=== PATIENT | male | born 1975 | race Caucasian/White ===

== ENCOUNTER 2021-05-16 11:33 | Outpatient (CLI) | payer BC, SELFPAY ==
[2021-05-16 13:04] LABS: Hemoglobin A1C 5.4 % (<5.7)
[2021-05-16 13:06] LABS: ALT 43 U/L (16-63); AST 22 U/L (15-37); Albumin 4.3 g/dL (3.4-5.0); Alkaline Phosphatase 65 U/L (46-116); Anion Gap 6.9 mmol/L (3-11); BUN 13 mg/dL (7-18); Bilirubin, Total 0.5 mg/dL (0.2-1.0); CO2 29.1 mmol/L (21.0-32.0); CREATININE 1.1 mg/dL (0.70-1.30); Calculated LDL 175 mg/dL (<100); Chloride 105 mmol/L (98-107); Cholesterol 252 mg/dL (<200); Glucose 87 mg/dL (74-106); HDL Cholesterol 35 mg/dL (40-60); Potassium 4.6 mmol/L (3.5-5.1); Sodium 141 mmol/L (136-145); Total Protein 7.3 g/dL (6.4-8.2); Triglyceride 213 mg/dL (<150)
== END 2021-05-16 11:34 | disposition home or self-care (01) ==
LOC: LOS 11:33
PROVIDERS: PCP Nurse Practitioner Family; Visit Provider Nurse Practitioner Family
DX: Z00.00 Encounter for general adult medical examination without abnormal findings (principal); Z13.1 Encounter for screening for diabetes mellitus; Z13.220 Encounter for screening for lipoid disorders
CPT/HCPCS: 36415; 80053; 80061; 83036

== ENCOUNTER 2021-10-22 04:25 | Outpatient (CLI) | payer BC, SELFPAY ==
[2021-10-22 12:48] LABS: Abs Immature Grans 0.02 10^3/uL (0.0-0.06); Absolute Basophil Count 0.03 10^3/uL (0.0-0.2); Absolute Lymphocyte Count 2.23 10^3/uL (1.2-3.4); Absolute Monocyte Count 0.77 10^3/uL (0.1-0.8); Absolute Neutrophil Count 5.02 10^3/uL (1.2-6.7); Basophils % 0.4; Eosinophils % 2.4; HCT 43.9 % (40.0-50.0); HGB 14.8 g/dL (13.5-17.5); Immature Grans % 0.2; MCH 30.1 pg (27.0-33.0); MCHC 33.7 % (32.0-36.0); MCV 89.4 fL (80-95); MPV 9.8 fL (8.0-11.0); Monocytes % 9.3; Neutrophils % 60.7; Nucleated RBC 0 %; Platelet Count 355 10^3/uL (130-400); RBC 4.91 10^6/uL (4.36-5.78); RDW 12.3 % (11.8-14.1); RDW-SD 40.4 fL; WBC 8.27 10^3/uL (4.4-10.8)
[2021-10-22 13:43] LABS: ALT 32 U/L (16-63); AST 14 U/L (15-37); Albumin 4.3 g/dL (3.4-5.0); Alkaline Phosphatase 100 U/L (46-116); Anion Gap 11.4 mmol/L (3-11); BUN 20 mg/dL (7-18); Bilirubin, Total 0.4 mg/dL (0.2-1.0); CO2 25.6 mmol/L (21.0-32.0); CREATININE 0.9 mg/dL (0.70-1.30); Calcium 9.2 mg/dL (8.5-10.1); Chloride 100 mmol/L (98-107); Glucose 109 mg/dL (74-106); Potassium 4.5 mmol/L (3.5-5.1); Sodium 137 mmol/L (136-145); Total Protein 7.9 g/dL (6.4-8.2)
== END 2021-10-22 04:26 | disposition home or self-care (01) ==
LOC: LBO 04:25
PROVIDERS: PCP Nurse Practitioner Family; Visit Provider Internal Medicine Hematology & Oncology
DX: C20 Malignant neoplasm of rectum (principal)
CPT/HCPCS: 36415; 80053; 85025

== ENCOUNTER 2021-11-08 15:08 | Outpatient (CLI) | payer BC, SELFPAY ==
[2021-11-08 12:51] LABS: Abs Immature Grans 0.02 10^3/uL (0.0-0.06); Absolute Basophil Count 0.02 10^3/uL (0.0-0.2); Absolute Eosinophil Count 0.15 10^3/uL (0.0-0.7); Absolute Lymphocyte Count 1.69 10^3/uL (1.2-3.4); Absolute Monocyte Count 0.73 10^3/uL (0.1-0.8); Absolute Neutrophil Count 4.15 10^3/uL (1.2-6.7); Basophils % 0.3; Eosinophils % 2.2; HCT 44.6 % (40.0-50.0); Immature Grans % 0.3; MCH 29.8 pg (27.0-33.0); MCHC 33.6 % (32.0-36.0); MCV 88.7 fL (80-95); MPV 9.5 fL (8.0-11.0); Monocytes % 10.8; Neutrophils % 61.4; Nucleated RBC 0 %; Platelet Count 358 10^3/uL (130-400); RBC 5.03 10^6/uL (4.36-5.78); RDW 12.2 % (11.8-14.1); RDW-SD 39.3 fL; WBC 6.76 10^3/uL (4.4-10.8)
[2021-11-08 13:07] LABS: ALT 33 U/L (16-63); AST 13 U/L (15-37); Albumin 4.1 g/dL (3.4-5.0); Alkaline Phosphatase 98 U/L (46-116); Anion Gap 11.1 mmol/L (3-11); BUN 17 mg/dL (7-18); Bilirubin, Total 0.4 mg/dL (0.2-1.0); CO2 24.9 mmol/L (21.0-32.0); CREATININE 0.9 mg/dL (0.70-1.30); Chloride 100 mmol/L (98-107); Glucose 105 mg/dL (74-106); Potassium 4.2 mmol/L (3.5-5.1); Sodium 136 mmol/L (136-145); Total Protein 8.4 g/dL (6.4-8.2)
== END 2021-11-08 15:09 | disposition home or self-care (01) ==
LOC: LBO 15:12
PROVIDERS: PCP Nurse Practitioner Family; Visit Provider Internal Medicine Hematology & Oncology
DX: C20 Malignant neoplasm of rectum (principal)
CPT/HCPCS: 36415; 80053; 85025

== ENCOUNTER 2021-11-15 01:55 | Outpatient (CLI) | payer BC, SELFPAY ==
[2021-11-15 14:49] LABS: Abs Immature Grans 0.02 10^3/uL (0.0-0.06); Absolute Basophil Count 0.01 10^3/uL (0.0-0.2); Absolute Lymphocyte Count 0.97 10^3/uL (1.2-3.4); Absolute Monocyte Count 0.49 10^3/uL (0.1-0.8); Absolute Neutrophil Count 3.03 10^3/uL (1.2-6.7); Basophils % 0.2; Eosinophils % 2.2; HCT 42.7 % (40.0-50.0); HGB 14.4 g/dL (13.5-17.5); Immature Grans % 0.4; MCH 29.8 pg (27.0-33.0); MCHC 33.7 % (32.0-36.0); MCV 88.2 fL (80-95); MPV 9.4 fL (8.0-11.0); Monocytes % 10.6; Neutrophils % 65.6; Nucleated RBC 0 %; Platelet Count 290 10^3/uL (130-400); RBC 4.84 10^6/uL (4.36-5.78); RDW 12.3 % (11.8-14.1); RDW-SD 38.6 fL; WBC 4.62 10^3/uL (4.4-10.8)
[2021-11-15 15:05] LABS: ALT 30 U/L (16-63); AST 15 U/L (15-37); Albumin 4.1 g/dL (3.4-5.0); Alkaline Phosphatase 85 U/L (46-116); Anion Gap 9.8 mmol/L (3-11); BUN 21 mg/dL (7-18); Bilirubin, Total 0.4 mg/dL (0.2-1.0); CO2 24.2 mmol/L (21.0-32.0); CREATININE 0.8 mg/dL (0.70-1.30); Calcium 9.1 mg/dL (8.5-10.1); Chloride 103 mmol/L (98-107); Glucose 98 mg/dL (74-106); Potassium 4.3 mmol/L (3.5-5.1); Sodium 137 mmol/L (136-145); Total Protein 8.1 g/dL (6.4-8.2)
== END 2021-11-15 01:56 | disposition home or self-care (01) ==
LOC: LBO 01:55
PROVIDERS: PCP Nurse Practitioner Family; Visit Provider Internal Medicine Hematology & Oncology
DX: C20 Malignant neoplasm of rectum (principal)
CPT/HCPCS: 36415; 80053; 85025

== ENCOUNTER 2021-11-22 03:35 | Outpatient (CLI) | payer BC, SELFPAY ==
[2021-11-22 13:13] LABS: Abs Immature Grans 0.01 10^3/uL (0.0-0.06); Absolute Basophil Count 0.01 10^3/uL (0.0-0.2); Absolute Eosinophil Count 0.05 10^3/uL (0.0-0.7); Absolute Lymphocyte Count 0.66 10^3/uL (1.2-3.4); Absolute Monocyte Count 0.41 10^3/uL (0.1-0.8); Basophils % 0.3; Eosinophils % 1.3; HCT 41.1 % (40.0-50.0); HGB 13.6 g/dL (13.5-17.5); Immature Grans % 0.3; Lymphocytes % 17.1; MCHC 33.1 % (32.0-36.0); MCV 90.5 fL (80-95); MPV 9.1 fL (8.0-11.0); Monocytes % 10.6; Neutrophils % 70.4; Nucleated RBC 0 %; Platelet Count 244 10^3/uL (130-400); RBC 4.54 10^6/uL (4.36-5.78); RDW 13.2 % (11.8-14.1); WBC 3.87 10^3/uL (4.4-10.8)
[2021-11-22 13:15] LABS: Absolute Neutrophil Count 2.72 10^3/uL (1.2-6.7)
[2021-11-22 13:29] LABS: ALT 32 U/L (16-63); AST 15 U/L (15-37); Albumin 4.2 g/dL (3.4-5.0); Alkaline Phosphatase 79 U/L (46-116); Anion Gap 9.1 mmol/L (3-11); BUN 23 mg/dL (7-18); Bilirubin, Total 0.5 mg/dL (0.2-1.0); CO2 27.9 mmol/L (21.0-32.0); Chloride 102 mmol/L (98-107); Glucose 90 mg/dL (74-106); Potassium 4.1 mmol/L (3.5-5.1); Sodium 139 mmol/L (136-145)
== END 2021-11-22 03:36 | disposition home or self-care (01) ==
LOC: LBO 03:35
PROVIDERS: PCP Nurse Practitioner Family; Visit Provider Internal Medicine Hematology & Oncology
DX: C20 Malignant neoplasm of rectum (principal)
CPT/HCPCS: 36415; 80053; 85025

== ENCOUNTER 2021-11-29 02:54 | Outpatient (CLI) | payer BC, SELFPAY ==
[2021-11-29 13:29] LABS: Abs Immature Grans 0.01 10^3/uL (0.0-0.06); Absolute Basophil Count 0.01 10^3/uL (0.0-0.2); Absolute Eosinophil Count 0.08 10^3/uL (0.0-0.7); Absolute Lymphocyte Count 0.58 10^3/uL (1.2-3.4); Absolute Monocyte Count 0.53 10^3/uL (0.1-0.8); Absolute Neutrophil Count 2.52 10^3/uL (1.2-6.7); Basophils % 0.3; Eosinophils % 2.1; HCT 39.6 % (40.0-50.0); HGB 13.3 g/dL (13.5-17.5); Immature Grans % 0.3; Lymphocytes % 15.5; MCH 30.6 pg (27.0-33.0); MCHC 33.6 % (32.0-36.0); MPV 9.2 fL (8.0-11.0); Monocytes % 14.2; Neutrophils % 67.6; Nucleated RBC 0 %; Platelet Count 208 10^3/uL (130-400); RBC 4.35 10^6/uL (4.36-5.78); RDW 13.8 % (11.8-14.1); RDW-SD 42.2 fL; WBC 3.73 10^3/uL (4.4-10.8)
[2021-11-29 13:51] LABS: ALT 30 U/L (16-63); AST 18 U/L (15-37); Albumin 4.2 g/dL (3.4-5.0); Alkaline Phosphatase 79 U/L (46-116); Anion Gap 10.2 mmol/L (3-11); BUN 20 mg/dL (7-18); Bilirubin, Total 0.5 mg/dL (0.2-1.0); CO2 27.8 mmol/L (21.0-32.0); Calcium 9.2 mg/dL (8.5-10.1); Chloride 103 mmol/L (98-107); Glucose 100 mg/dL (74-106); Sodium 141 mmol/L (136-145)
== END 2021-11-29 02:55 | disposition home or self-care (01) ==
LOC: LBO 02:54
PROVIDERS: PCP Nurse Practitioner Family; Visit Provider Internal Medicine Hematology & Oncology
DX: C20 Malignant neoplasm of rectum (principal)
CPT/HCPCS: 36415; 80053; 85025

== ENCOUNTER 2021-12-06 02:38 | Outpatient (CLI) | payer BC, SELFPAY ==
[2021-12-06 11:16] LABS: Abs Immature Grans 0.02 10^3/uL (0.0-0.06); Absolute Basophil Count 0.01 10^3/uL (0.0-0.2); Absolute Eosinophil Count 0.05 10^3/uL (0.0-0.7); Absolute Lymphocyte Count 0.38 10^3/uL (1.2-3.4); Absolute Monocyte Count 0.71 10^3/uL (0.1-0.8); Absolute Neutrophil Count 5.87 10^3/uL (1.2-6.7); Basophils % 0.1; Eosinophils % 0.7; HCT 40.3 % (40.0-50.0); HGB 13.8 g/dL (13.5-17.5); Immature Grans % 0.3; Lymphocytes % 5.4; MCH 30.8 pg (27.0-33.0); MCHC 34.2 % (32.0-36.0); Monocytes % 10.1; Neutrophils % 83.4; Nucleated RBC 0 %; Platelet Count 212 10^3/uL (130-400); RBC 4.48 10^6/uL (4.36-5.78); RDW 14.7 % (11.8-14.1); RDW-SD 46.4 fL; WBC 7.04 10^3/uL (4.4-10.8)
[2021-12-06 12:38] LABS: ALT 26 U/L (16-63); AST 14 U/L (15-37); Albumin 4.1 g/dL (3.4-5.0); Alkaline Phosphatase 86 U/L (46-116); Anion Gap 10.7 mmol/L (3-11); BUN 20 mg/dL (7-18); Bilirubin, Total 0.5 mg/dL (0.2-1.0); CO2 25.3 mmol/L (21.0-32.0); Calcium 8.9 mg/dL (8.5-10.1); Chloride 104 mmol/L (98-107); Glucose 141 mg/dL (74-106); Potassium 4.3 mmol/L (3.5-5.1); Sodium 140 mmol/L (136-145); Total Protein 7.5 g/dL (6.4-8.2)
== END 2021-12-06 02:39 | disposition home or self-care (01) ==
LOC: LBO 02:38
PROVIDERS: PCP Nurse Practitioner Family; Visit Provider Internal Medicine Hematology & Oncology
DX: C20 Malignant neoplasm of rectum (principal)
CPT/HCPCS: 36415; 80053; 85025

== ENCOUNTER 2022-01-18 02:59 | Outpatient (RCR) | payer BC, SELFPAY ==
[2022-01-02] MEDS: Normal Saline Flush 10 ML SYR IVP (07:45)
[2022-01-02 07:52] LABS: Abs Immature Grans 0.02 10^3/uL (0.0-0.06); Absolute Basophil Count 0.02 10^3/uL (0.0-0.2); Absolute Eosinophil Count 0.08 10^3/uL (0.0-0.7); Absolute Monocyte Count 0.55 10^3/uL (0.1-0.8); Absolute Neutrophil Count 3.41 10^3/uL (1.2-6.7); Basophils % 0.4; Eosinophils % 1.8; HGB 14.2 g/dL (13.5-17.5); Immature Grans % 0.4; Lymphocytes % 8.9; MCH 31.1 pg (27.0-33.0); MCHC 33.8 % (32.0-36.0); MCV 92.1 fL (80-95); MPV 9.7 fL (8.0-11.0); Monocytes % 12.3; Neutrophils % 76.2; Nucleated RBC 0 %; Platelet Count 232 10^3/uL (130-400); RBC 4.56 10^6/uL (4.36-5.78); RDW 15.7 % (11.8-14.1); RDW-SD 52.8 fL; WBC 4.48 10^3/uL (4.4-10.8)
[2022-01-02 08:10] LABS: ALT 39 U/L (16-63); AST 5 U/L (15-37); Albumin 4.2 g/dL (3.4-5.0); Alkaline Phosphatase 85 U/L (46-116); Anion Gap 11.7 mmol/L (3-11); BUN 16 mg/dL (7-18); Bilirubin, Total 0.3 mg/dL (0.2-1.0); CO2 25.3 mmol/L (21.0-32.0); CREATININE 1.1 mg/dL (0.70-1.30); Calcium 9.2 mg/dL (8.5-10.1); Chloride 104 mmol/L (98-107); Glucose 114 mg/dL (74-106); Potassium 3.9 mmol/L (3.5-5.1); Sodium 141 mmol/L (136-145); Total Protein 8.2 g/dL (6.4-8.2)
[2022-01-18] MEDS: Normal Saline Flush 10 ML SYR IVP (07:39)
[2022-01-18 07:43] LABS: Abs Immature Grans 0.01 10^3/uL (0.0-0.06); Absolute Basophil Count 0.01 10^3/uL (0.0-0.2); Absolute Eosinophil Count 0.07 10^3/uL (0.0-0.7); Absolute Monocyte Count 0.39 10^3/uL (0.1-0.8); Basophils % 0.4; Eosinophils % 2.5; HCT 39.6 % (40.0-50.0); HGB 13.6 g/dL (13.5-17.5); Immature Grans % 0.4; Lymphocytes % 10.8; MCH 31.3 pg (27.0-33.0); MCHC 34.3 % (32.0-36.0); MCV 91.2 fL (80-95); Neutrophils % 71.9; Nucleated RBC 0 %; Platelet Count 219 10^3/uL (130-400); RBC 4.34 10^6/uL (4.36-5.78); RDW 15.8 % (11.8-14.1); RDW-SD 52.4 fL; WBC 2.78 10^3/uL (4.4-10.8)
[2022-01-18 08:01] LABS: ALT 45 U/L (16-63); AST 24 U/L (15-37); Albumin 4.1 g/dL (3.4-5.0); Alkaline Phosphatase 88 U/L (46-116); Anion Gap 11.2 mmol/L (3-11); BUN 18 mg/dL (7-18); Bilirubin, Total 0.6 mg/dL (0.2-1.0); CO2 24.8 mmol/L (21.0-32.0); CREATININE 1.2 mg/dL (0.70-1.30); Calcium 8.9 mg/dL (8.5-10.1); Chloride 104 mmol/L (98-107); Glucose 170 mg/dL (74-106); Potassium 3.7 mmol/L (3.5-5.1); Sodium 140 mmol/L (136-145); Total Protein 7.8 g/dL (6.4-8.2)
== END 2022-01-24 23:59 | disposition home or self-care (01) ==
LOC: INF 02:59
PROVIDERS: PCP Nurse Practitioner Family; Visit Provider Internal Medicine Hematology & Oncology
DX: C20 Malignant neoplasm of rectum (principal); Z45.2 Encounter for adjustment and management of vascular access device
CPT/HCPCS: 36591; 80053; 85025

== ENCOUNTER 2022-02-15 00:49 | Outpatient (RCR) | payer BC, SELFPAY ==
[2022-02-01] MEDS: Normal Saline Flush 10 ML SYR IVP (07:30)
[2022-02-01 07:47] LABS: Abs Immature Grans 0.01 10^3/uL (0.0-0.06); Absolute Basophil Count 0.01 10^3/uL (0.0-0.2); Absolute Eosinophil Count 0.05 10^3/uL (0.0-0.7); Absolute Lymphocyte Count 0.38 10^3/uL (1.2-3.4); Absolute Neutrophil Count 2.46 10^3/uL (1.2-6.7); Basophils % 0.3; Eosinophils % 1.5; HCT 38.1 % (40.0-50.0); Immature Grans % 0.3; Lymphocytes % 11.5; MCH 32.3 pg (27.0-33.0); MCHC 34.1 % (32.0-36.0); MCV 94.8 fL (80-95); MPV 9.9 fL (8.0-11.0); Monocytes % 12.1; Neutrophils % 74.3; Nucleated RBC 0 %; Platelet Count 144 10^3/uL (130-400); RBC 4.02 10^6/uL (4.36-5.78); RDW 15.8 % (11.8-14.1); RDW-SD 53.4 fL; WBC 3.31 10^3/uL (4.4-10.8)
[2022-02-01 08:03] LABS: ALT 41 U/L (16-63); AST 21 U/L (15-37); Alkaline Phosphatase 78 U/L (46-116); Anion Gap 8.2 mmol/L (3-11); BUN 25 mg/dL (7-18); Bilirubin, Total 0.5 mg/dL (0.2-1.0); CO2 25.8 mmol/L (21.0-32.0); CREATININE 1.1 mg/dL (0.70-1.30); Calcium 8.8 mg/dL (8.5-10.1); Chloride 107 mmol/L (98-107); Glucose 113 mg/dL (74-106); Potassium 3.9 mmol/L (3.5-5.1); Sodium 141 mmol/L (136-145); Total Protein 7.4 g/dL (6.4-8.2)
[2022-02-15] MEDS: Normal Saline Flush 10 ML SYR IVP (08:23)
[2022-02-15 08:43] LABS: Abs Immature Grans 0.01 10^3/uL (0.0-0.06); Absolute Basophil Count 0.01 10^3/uL (0.0-0.2); Absolute Eosinophil Count 0.04 10^3/uL (0.0-0.7); Absolute Lymphocyte Count 0.38 10^3/uL (1.2-3.4); Absolute Monocyte Count 0.34 10^3/uL (0.1-0.8); Absolute Neutrophil Count 1.78 10^3/uL (1.2-6.7); Basophils % 0.4; Eosinophils % 1.6; HGB 12.6 g/dL (13.5-17.5); Immature Grans % 0.4; Lymphocytes % 14.8; MCH 32.7 pg (27.0-33.0); MCV 93.5 fL (80-95); MPV 9.7 fL (8.0-11.0); Monocytes % 13.3; Neutrophils % 69.5; Platelet Count 129 10^3/uL (130-400); RBC 3.85 10^6/uL (4.36-5.78); RDW 15.6 % (11.8-14.1); WBC 2.56 10^3/uL (4.4-10.8)
[2022-02-15 09:04] LABS: ALT 53 U/L (16-63); AST 29 U/L (15-37); Albumin 3.8 g/dL (3.4-5.0); Alkaline Phosphatase 90 U/L (46-116); Anion Gap 10.5 mmol/L (3-11); BUN 20 mg/dL (7-18); Bilirubin, Total 0.4 mg/dL (0.2-1.0); CO2 24.5 mmol/L (21.0-32.0); Calcium 8.7 mg/dL (8.5-10.1); Chloride 103 mmol/L (98-107); Glucose 125 mg/dL (74-106); Potassium 3.9 mmol/L (3.5-5.1); Sodium 138 mmol/L (136-145); Total Protein 7.3 g/dL (6.4-8.2)
[2022-02-15 10:19] LABS: FREE T4 0.93 ng/dL (0.76-1.46); TSH 1.44 uIU/mL (0.36-3.74)
== END 2022-02-23 23:59 | disposition home or self-care (01) ==
LOC: INF 00:49
PROVIDERS: PCP Nurse Practitioner Family; Visit Provider Internal Medicine Hematology & Oncology
DX: Z45.2 Encounter for adjustment and management of vascular access device (principal); C20 Malignant neoplasm of rectum; E04.9 Nontoxic goiter, unspecified
CPT/HCPCS: 36591; 80053; 84439; 84443; 85025

== ENCOUNTER 2022-04-19 01:05 | Outpatient (RCR) | payer BC, SELFPAY ==
[2022-04-05] MEDS: Normal Saline Flush 10 ML SYR IVP (07:40)
[2022-04-05 07:49] LABS: Abs Immature Grans 0.03 10^3/uL (0.0-0.06); Absolute Basophil Count 0.01 10^3/uL (0.0-0.2); Absolute Eosinophil Count 0.09 10^3/uL (0.0-0.7); Absolute Lymphocyte Count 0.57 10^3/uL (1.2-3.4); Absolute Monocyte Count 0.42 10^3/uL (0.1-0.8); Absolute Neutrophil Count 3.11 10^3/uL (1.2-6.7); Basophils % 0.2; Eosinophils % 2.1; HCT 39.4 % (40.0-50.0); HGB 13.4 g/dL (13.5-17.5); Immature Grans % 0.7; Lymphocytes % 13.5; MCH 32.1 pg (27.0-33.0); MCV 95 fL (80-95); MPV 9.9 fL (8.0-11.0); Monocytes % 9.9; Neutrophils % 73.6; Platelet Count 227 10^3/uL (130-400); RBC 4.17 10^6/uL (4.36-5.78); RDW 12.8 % (11.8-14.1); RDW-SD 44.2 fL; WBC 4.23 10^3/uL (4.4-10.8)
[2022-04-05 08:05] LABS: ALT 48 U/L (16-63); AST 21 U/L (15-37); Albumin 3.8 g/dL (3.4-5.0); Alkaline Phosphatase 84 U/L (46-116); Anion Gap 9.5 mmol/L (3-11); BUN 19 mg/dL (7-18); Bilirubin, Total 0.4 mg/dL (0.2-1.0); CO2 24.5 mmol/L (21.0-32.0); CREATININE 1.2 mg/dL (0.70-1.30); Calcium 8.8 mg/dL (8.5-10.1); Chloride 104 mmol/L (98-107); Glucose 191 mg/dL (74-106); Potassium 3.8 mmol/L (3.5-5.1); Sodium 138 mmol/L (136-145); Total Protein 7.5 g/dL (6.4-8.2)
[2022-04-05 18:02] LABS: CEA <0.5 ng/mL (See Note)
[2022-04-19 09:56] LABS: Abs Immature Grans 0.01 10^3/uL (0.0-0.06); Absolute Basophil Count 0.01 10^3/uL (0.0-0.2); Absolute Eosinophil Count 0.05 10^3/uL (0.0-0.7); Absolute Lymphocyte Count 0.53 10^3/uL (1.2-3.4); Absolute Monocyte Count 0.43 10^3/uL (0.1-0.8); Absolute Neutrophil Count 1.85 10^3/uL (1.2-6.7); Basophils % 0.3; Eosinophils % 1.7; HCT 35.6 % (40.0-50.0); Immature Grans % 0.3; Lymphocytes % 18.4; MCH 32.4 pg (27.0-33.0); MCHC 33.7 % (32.0-36.0); MCV 96 fL (80-95); MPV 9.6 fL (8.0-11.0); Monocytes % 14.9; Neutrophils % 64.4; Platelet Count 178 10^3/uL (130-400); RDW 13.3 % (11.8-14.1); RDW-SD 46.9 fL; WBC 2.88 10^3/uL (4.4-10.8)
[2022-04-19 10:09] LABS: ALT 40 U/L (16-63); AST 26 U/L (15-37); Albumin 3.6 g/dL (3.4-5.0); Alkaline Phosphatase 74 U/L (46-116); BUN 20 mg/dL (7-18); Bilirubin, Total 0.4 mg/dL (0.2-1.0); CREATININE 1.1 mg/dL (0.70-1.30); Calcium 8.6 mg/dL (8.5-10.1); Chloride 108 mmol/L (98-107); Glucose 131 mg/dL (74-106); Potassium 3.9 mmol/L (3.5-5.1); Sodium 141 mmol/L (136-145); Total Protein 6.9 g/dL (6.4-8.2)
[2022-04-19 22:10] LABS: CEA 0.6 ng/mL (See Note)
== END 2022-04-25 23:59 | disposition home or self-care (01) ==
LOC: INF 01:05
PROVIDERS: PCP Nurse Practitioner Family; Visit Provider Internal Medicine Hematology & Oncology
DX: Z45.2 Encounter for adjustment and management of vascular access device (principal); C20 Malignant neoplasm of rectum
CPT/HCPCS: 36591; 80053; 82378; 85025

== ENCOUNTER 2022-05-17 01:39 | Outpatient (RCR) | payer BC, SELFPAY ==
[2022-05-03] MEDS: Normal Saline Flush 10 ML SYR IVP (09:25)
[2022-05-03 09:41] LABS: Abs Immature Grans 0.01 10^3/uL (0.0-0.06); Absolute Basophil Count 0.01 10^3/uL (0.0-0.2); Absolute Eosinophil Count 0.04 10^3/uL (0.0-0.7); Absolute Monocyte Count 0.38 10^3/uL (0.1-0.8); Basophils % 0.4; Eosinophils % 1.5; HCT 39.4 % (40.0-50.0); HGB 13.8 g/dL (13.5-17.5); Immature Grans % 0.4; Lymphocytes % 18.9; MCH 32.9 pg (27.0-33.0); MCV 94 fL (80-95); MPV 9.7 fL (8.0-11.0); Monocytes % 14.4; Neutrophils % 64.4; Platelet Count 128 10^3/uL (130-400); RDW 13.7 % (11.8-14.1); WBC 2.64 10^3/uL (4.4-10.8)
[2022-05-03 09:55] LABS: ALT 52 U/L (16-63); AST 29 U/L (15-37); Albumin 3.7 g/dL (3.4-5.0); Alkaline Phosphatase 82 U/L (46-116); Anion Gap 10.4 mmol/L (3-11); BUN 19 mg/dL (7-18); Bilirubin, Total 0.3 mg/dL (0.2-1.0); CO2 24.6 mmol/L (21.0-32.0); Calcium 8.9 mg/dL (8.5-10.1); Chloride 105 mmol/L (98-107); Glucose 170 mg/dL (74-106); Potassium 4.1 mmol/L (3.5-5.1); Sodium 140 mmol/L (136-145); Total Protein 7.3 g/dL (6.4-8.2)
[2022-05-03 18:17] LABS: CEA 0.7 ng/mL (See Note)
[2022-05-17] MEDS: Normal Saline Flush 10 ML SYR IVP (11:00)
[2022-05-17 11:19] LABS: Absolute Basophil Count 0.01 10^3/uL (0.0-0.2); Absolute Eosinophil Count 0.02 10^3/uL (0.0-0.7); Absolute Lymphocyte Count 0.56 10^3/uL (1.2-3.4); Absolute Monocyte Count 0.44 10^3/uL (0.1-0.8); Absolute Neutrophil Count 1.57 10^3/uL (1.2-6.7); Basophils % 0.4; Eosinophils % 0.8; HCT 39.3 % (40.0-50.0); HGB 13.4 g/dL (13.5-17.5); Lymphocytes % 21.5; MCH 32.1 pg (27.0-33.0); MCHC 34.1 % (32.0-36.0); MCV 94 fL (80-95); MPV 10.3 fL (8.0-11.0); Monocytes % 16.9; Neutrophils % 60.4; Platelet Count 129 10^3/uL (130-400); RBC 4.17 10^6/uL (4.36-5.78); RDW 14.2 % (11.8-14.1); RDW-SD 47.8 fL
[2022-05-17 11:41] LABS: ALT 61 U/L (16-63); AST 33 U/L (15-37); Albumin 3.8 g/dL (3.4-5.0); Alkaline Phosphatase 85 U/L (46-116); Anion Gap 10.3 mmol/L (3-11); BUN 20 mg/dL (7-18); Bilirubin, Total 0.7 mg/dL (0.2-1.0); CO2 25.7 mmol/L (21.0-32.0); CREATININE 1.1 mg/dL (0.70-1.30); Calcium 9.1 mg/dL (8.5-10.1); Chloride 105 mmol/L (98-107); Glucose 135 mg/dL (74-106); Potassium 3.9 mmol/L (3.5-5.1); Sodium 141 mmol/L (136-145); Total Protein 7.5 g/dL (6.4-8.2)
== END 2022-05-26 23:59 | disposition home or self-care (01) ==
LOC: INF 01:39
PROVIDERS: PCP Nurse Practitioner Family; Visit Provider Internal Medicine Hematology & Oncology
DX: C20 Malignant neoplasm of rectum (principal); Z45.2 Encounter for adjustment and management of vascular access device
CPT/HCPCS: 36591; 80053; 82378; 85025

== ENCOUNTER 2022-06-14 00:45 | Outpatient (RCR) | payer BC, SELFPAY ==
[2022-05-31] MEDS: Normal Saline Flush 10 ML SYR IVP (09:15)
[2022-05-31 09:24] LABS: Abs Immature Grans 0.05 10^3/uL (0.0-0.06); Absolute Basophil Count 0.02 10^3/uL (0.0-0.2); Absolute Eosinophil Count 0.04 10^3/uL (0.0-0.7); Absolute Lymphocyte Count 0.52 10^3/uL (1.2-3.4); Absolute Monocyte Count 0.58 10^3/uL (0.1-0.8); Absolute Neutrophil Count 1.78 10^3/uL (1.2-6.7); Basophils % 0.7; Eosinophils % 1.3; HCT 39.1 % (40.0-50.0); HGB 13.5 g/dL (13.5-17.5); Immature Grans % 1.7; Lymphocytes % 17.4; MCH 32.9 pg (27.0-33.0); MCHC 34.5 % (32.0-36.0); MCV 95 fL (80-95); MPV 9.9 fL (8.0-11.0); Monocytes % 19.4; Neutrophils % 59.5; Platelet Count 190 10^3/uL (130-400); RDW 13.8 % (11.8-14.1); RDW-SD 48.9 fL; WBC 2.99 10^3/uL (4.4-10.8)
[2022-05-31 09:47] LABS: ALT 73 U/L (16-63); AST 35 U/L (15-37); Albumin 3.6 g/dL (3.4-5.0); Alkaline Phosphatase 77 U/L (46-116); BUN 21 mg/dL (7-18); Bilirubin, Total 0.3 mg/dL (0.2-1.0); CREATININE 0.9 mg/dL (0.70-1.30); Calcium 8.9 mg/dL (8.5-10.1); Chloride 102 mmol/L (98-107); Glucose 114 mg/dL (74-106); Potassium 4.1 mmol/L (3.5-5.1); Sodium 135 mmol/L (136-145); Total Protein 7.3 g/dL (6.4-8.2)
[2022-06-03 10:12] LABS: CEA 0.6 ng/mL (See Note)
[2022-06-14] MEDS: Normal Saline Flush 10 ML SYR IVP (08:58)
[2022-06-14 09:12] LABS: Absolute Basophil Count 0.01 10^3/uL (0.0-0.2); Absolute Eosinophil Count 0.04 10^3/uL (0.0-0.7); Absolute Lymphocyte Count 0.51 10^3/uL (1.2-3.4); Absolute Monocyte Count 0.34 10^3/uL (0.1-0.8); Absolute Neutrophil Count 1.43 10^3/uL (1.2-6.7); Basophils % 0.4; Eosinophils % 1.7; HGB 13.7 g/dL (13.5-17.5); Lymphocytes % 21.9; MCH 32.5 pg (27.0-33.0); MCHC 34.3 % (32.0-36.0); MCV 95 fL (80-95); MPV 9.9 fL (8.0-11.0); Monocytes % 14.6; Neutrophils % 61.4; Platelet Count 205 10^3/uL (130-400); RBC 4.22 10^6/uL (4.36-5.78); RDW 13.9 % (11.8-14.1); RDW-SD 48.1 fL; WBC 2.33 10^3/uL (4.4-10.8)
[2022-06-14 09:24] LABS: ALT 48 U/L (16-63); AST 27 U/L (15-37); Albumin 3.7 g/dL (3.4-5.0); Alkaline Phosphatase 84 U/L (46-116); BUN 16 mg/dL (7-18); Bilirubin, Total 0.4 mg/dL (0.2-1.0); Chloride 102 mmol/L (98-107); Glucose 169 mg/dL (74-106); Sodium 139 mmol/L (136-145); Total Protein 7.6 g/dL (6.4-8.2)
[2022-06-14 20:37] LABS: CEA 0.8 ng/mL (See Note)
== END 2022-06-26 23:59 | disposition home or self-care (01) ==
LOC: INF 00:45
PROVIDERS: PCP Nurse Practitioner Family; Visit Provider Internal Medicine Hematology & Oncology
DX: Z45.2 Encounter for adjustment and management of vascular access device (principal); C20 Malignant neoplasm of rectum
CPT/HCPCS: 36591; 80053; 82378; 85025

== ENCOUNTER 2022-07-12 01:08 | Outpatient (RCR) | payer BC, SELFPAY ==
[2022-06-28 10:14] LABS: Abs Immature Grans 0.03 10^3/uL (0.0-0.06); Absolute Basophil Count 0.02 10^3/uL (0.0-0.2); Absolute Eosinophil Count 0.03 10^3/uL (0.0-0.7); Absolute Lymphocyte Count 0.65 10^3/uL (1.2-3.4); Absolute Neutrophil Count 3.01 10^3/uL (1.2-6.7); Basophils % 0.5; Eosinophils % 0.7; HCT 40.3 % (40.0-50.0); HGB 14.1 g/dL (13.5-17.5); Immature Grans % 0.7; Lymphocytes % 15.7; MCH 32.3 pg (27.0-33.0); MCV 92 fL (80-95); MPV 9.7 fL (8.0-11.0); Monocytes % 9.7; Neutrophils % 72.7; Platelet Count 219 10^3/uL (130-400); RBC 4.37 10^6/uL (4.36-5.78); RDW 13.5 % (11.8-14.1); WBC 4.14 10^3/uL (4.4-10.8)
[2022-06-28] MEDS: Normal Saline Flush 10 ML SYR IVP (10:21)
[2022-06-28 11:33] LABS: ALT 59 U/L (16-63); AST 35 U/L (15-37); Albumin 3.9 g/dL (3.4-5.0); Alkaline Phosphatase 84 U/L (46-116); BUN 17 mg/dL (7-18); Bilirubin, Total 0.5 mg/dL (0.2-1.0); CREATININE 1.2 mg/dL (0.70-1.30); Calcium 9.2 mg/dL (8.5-10.1); Chloride 102 mmol/L (98-107); Glucose 181 mg/dL (74-106); Potassium 3.7 mmol/L (3.5-5.1); Sodium 137 mmol/L (136-145); Total Protein 7.8 g/dL (6.4-8.2)
[2022-06-28 18:33] LABS: CEA 0.6 ng/mL (See Note)
[2022-07-12] MEDS: Normal Saline Flush 10 ML SYR IVP (12:33)
[2022-07-12 12:43] LABS: Abs Immature Grans 0.01 10^3/uL (0.0-0.06); Absolute Basophil Count 0.01 10^3/uL (0.0-0.2); Absolute Eosinophil Count 0.04 10^3/uL (0.0-0.7); Absolute Monocyte Count 0.38 10^3/uL (0.1-0.8); Absolute Neutrophil Count 1.86 10^3/uL (1.2-6.7); Basophils % 0.4; Eosinophils % 1.4; HCT 35.9 % (40.0-50.0); HGB 12.3 g/dL (13.5-17.5); Immature Grans % 0.4; Lymphocytes % 17.9; MCH 32.2 pg (27.0-33.0); MCHC 34.3 % (32.0-36.0); MCV 94 fL (80-95); MPV 9.2 fL (8.0-11.0); Monocytes % 13.6; Neutrophils % 66.3; Platelet Count 196 10^3/uL (130-400); RBC 3.82 10^6/uL (4.36-5.78); RDW 13.9 % (11.8-14.1); RDW-SD 47.5 fL
[2022-07-12 13:01] LABS: ALT 41 U/L (16-63); AST 29 U/L (15-37); Albumin 3.8 g/dL (3.4-5.0); Alkaline Phosphatase 78 U/L (46-116); Anion Gap 9.4 mmol/L (3-11); BUN 18 mg/dL (7-18); Bilirubin, Total 0.6 mg/dL (0.2-1.0); CO2 25.6 mmol/L (21.0-32.0); CREATININE 1.2 mg/dL (0.70-1.30); Calcium 8.9 mg/dL (8.5-10.1); Chloride 104 mmol/L (98-107); Glucose 136 mg/dL (74-106); Potassium 3.6 mmol/L (3.5-5.1); Sodium 139 mmol/L (136-145); Total Protein 7.3 g/dL (6.4-8.2)
[2022-07-15 07:53] LABS: CEA 0.7 ng/mL (See Note)
== END 2022-07-26 23:59 | disposition home or self-care (01) ==
LOC: INF 01:08
PROVIDERS: PCP Nurse Practitioner Family; Visit Provider Internal Medicine Hematology & Oncology
DX: Z45.2 Encounter for adjustment and management of vascular access device (principal); C20 Malignant neoplasm of rectum
CPT/HCPCS: 36591; 80053; 82378; 85025

== ENCOUNTER 2022-09-30 09:46 | Outpatient (RCR) | payer BC, SELFPAY ==
[2022-09-30] MEDS: Normal Saline Flush 10 ML SYR IVP (09:58)
[2022-09-30] MEDS: Heparin 500 UNITS/5 ML SYRINGE IV (09:58)
[2022-09-30 10:09] LABS: Abs Immature Grans 0.01 10^3/uL (0.0-0.06); Absolute Basophil Count 0.03 10^3/uL (0.0-0.2); Absolute Eosinophil Count 0.08 10^3/uL (0.0-0.7); Absolute Lymphocyte Count 0.92 10^3/uL (1.2-3.4); Absolute Monocyte Count 0.43 10^3/uL (0.1-0.8); Absolute Neutrophil Count 3.04 10^3/uL (1.2-6.7); Basophils % 0.7; Eosinophils % 1.8; HCT 44.1 % (40.0-50.0); HGB 15.3 g/dL (13.5-17.5); Immature Grans % 0.2; Lymphocytes % 20.4; MCH 31.7 pg (27.0-33.0); MCHC 34.7 % (32.0-36.0); MCV 92 fL (80-95); MPV 9.5 fL (8.0-11.0); Monocytes % 9.5; Neutrophils % 67.4; Platelet Count 288 10^3/uL (130-400); RBC 4.82 10^6/uL (4.36-5.78); RDW 11.9 % (11.8-14.1); RDW-SD 39.9 fL; WBC 4.51 10^3/uL (4.4-10.8)
[2022-09-30 10:23] LABS: ALT 44 U/L (16-63); AST 23 U/L (15-37); Albumin 4.2 g/dL (3.4-5.0); Alkaline Phosphatase 97 U/L (46-116); Anion Gap 10.7 mmol/L (3-11); BUN 26 mg/dL (7-18); Bilirubin, Total 0.6 mg/dL (0.2-1.0); CO2 26.3 mmol/L (21.0-32.0); CREATININE 1.2 mg/dL (0.70-1.30); Chloride 102 mmol/L (98-107); Estimated GFR 74.13 (mL/min/1.73m2); Glucose 158 mg/dL (74-106); Sodium 139 mmol/L (136-145); Total Protein 7.8 g/dL (6.4-8.2)
[2022-09-30 17:49] LABS: CEA 0.8 ng/mL (See Note)
== END 2022-10-26 23:59 | disposition home or self-care (01) ==
LOC: INF 09:46
PROVIDERS: PCP Nurse Practitioner Family; Visit Provider Internal Medicine Hematology & Oncology
DX: Z45.2 Encounter for adjustment and management of vascular access device (principal); C20 Malignant neoplasm of rectum
CPT/HCPCS: 36591; 80053; 82378; 85025

== ENCOUNTER 2022-11-15 14:24 | Outpatient (RCR) | payer BC, SELFPAY ==
[2022-11-15] MEDS: Heparin 500 UNITS/5 ML SYRINGE (14:00)
[2022-11-15] MEDS: Normal Saline Flush 10 ML SYR IVP (14:02)
== END 2022-11-26 23:59 | disposition home or self-care (01) ==
LOC: INF 14:24
PROVIDERS: PCP Nurse Practitioner Family; Visit Provider Internal Medicine Hematology & Oncology
DX: Z45.2 Encounter for adjustment and management of vascular access device (principal)
CPT/HCPCS: 96523

== ENCOUNTER 2024-01-02 15:29 | Outpatient (CLI) | payer BC, SELFPAY ==
[2024-01-02 15:56] LABS: CREATININE 1.2 mg/dL (0.70-1.30); Estimated GFR 73.67 (mL/min/1.73m2)
[2024-01-02 22:51] LABS: CEA 0.8 ng/mL (See Note)
== END 2024-01-02 15:30 | disposition home or self-care (01) ==
LOC: LBO 15:29
PROVIDERS: PCP Nurse Practitioner Family; Visit Provider Internal Medicine Hematology & Oncology
DX: C20 Malignant neoplasm of rectum (principal)
CPT/HCPCS: 36415; 82378; 82565